=== PATIENT | female | born 1985 | race Hispanic/Latino ===

== ENCOUNTER 2018-12-28 08:12 | Outpatient (CLI) | payer OTHER ==
--- NOTE | 2018-12-29 09:24 | NM ---
NM I-123 Thyroid Uptake/Scan HISTORY: Thyrotoxicosis, elevated free thyroxine measuring 2.61 COMPARISON: None. RADIOPHARMACEUTICAL: 252 uCi of I-123 administered orally FINDINGS: There is diffusely increased uptake in the thyroid gland without focal hot or cold nodules. The 24-hour uptake measures 80% (normal 10-30%). IMPRESSION: Findings are consistent with hyperthyroid Graves' disease.
== END 2018-12-28 08:13 | disposition home or self-care (01) ==
LOC: NM 08:12
PROVIDERS: ATTEND Family Medicine
DX: E05.90 Thyrotoxicosis, unspecified without thyrotoxic crisis or storm (principal)
CPT/HCPCS: 78014; A9516

== ENCOUNTER 2023-10-22 08:00 | Outpatient (CLI) | payer OTHER | END 2023-10-22 08:01 | disposition home or self-care (01) | LOC: NM 08:00 | PROVIDERS: ATTEND Internal Medicine Endocrinology, Diabetes & Metabolism | DX: E05.80 Other thyrotoxicosis without thyrotoxic crisis or storm (principal); R94.8 Abnormal results of function studies of other organs and systems | CPT/HCPCS: 78014; A9516 ==